=== PATIENT | female | born 1940 | race Caucasian/White ===

== ENCOUNTER 2020-08-09 14:56 | Inpatient (IN) | payer BC, OTHER ==
[~2020-08-09] VITALS: Ht 152.4 cm; Wt 54.0 kg
--- NOTE | 2020-08-09 15:10 | NUR ---
There is no information about current home medications available, the patient is unable to provide the information.
--- NOTE | 2020-08-09 15:15 | NUR ---
Dr. Charles at bedside MSE in progress.
[2020-08-09 15:57] LABS: BASOPHILS # (AUTO) 0.1 K/uL (0.0-8.0); BASOPHILS % (AUTO) 0.9 % (0.0-2.0); EOSINOPHILS # (AUTO) 0.3 K/uL (0.0-0.7); EOSINOPHILS % (AUTO) 2.3 % (0.0-7.0); HEMATOCRIT 31.6 % (31.2-41.9); HEMOGLOBIN 10.5 g/dL (10.9-14.3); LYMPHOCYTES # (AUTO) 1.7 K/uL (20.0-40.0); LYMPHOCYTES % (AUTO) 13.5 % (20.5-51.5); MEAN CORPUSCULAR HEMOGLOBIN 29.6 uug (24.7-32.8); MEAN CORPUSCULAR HGB CONC 33 g/dL (32.3-35.6); MEAN CORPUSCULAR VOLUME 89.5 fL (75.5-95.3); MONOCYTES % (AUTO) 8.4 % (0.0-11.0); NEUTROPHILS # (AUTO) 9.4 K/uL (1.8-8.9); NEUTROPHILS % (AUTO) 74.9 % (38.5-71.5); PLATELET COUNT (AUTO) 159 K/uL (179-408); RED BLOOD CELL COUNT(AUTO) 3.54 MIL/uL (3.63-4.92); WHITE BLOOD COUNT (AUTO) 12.5 K/uL (3.8-11.8)
[2020-08-09 16:01] LABS: CARBON DIOXIDE 22 mmol/L (21-32); CHLORIDE 107 mmol/L (98-107); CREATININE 1.4 mg/dL (0.6-1.3); GLUCOSE 110 mg/dL (74-106); POTASSIUM 4.3 mmol/L (3.5-5.1); UREA NITROGEN, BLOOD 51 mg/dL (7-18)
[2020-08-09 16:07] LABS: ETHANOL < 3 MG/DL (0-0)
[2020-08-09 16:14] LABS: THYROID STIMULATING HORMONE 0.513 mIU/mL (0.358-3.740)
[2020-08-09 16:16] LABS: ALANINE AMINOTRANSFERASE 19 U/L (14-59); ALKALINE PHOSPHATASE 74 U/L (50-136); ASPARTATE AMINOTRANSFERASE 19 U/L (15-37); BILIRUBIN,DIRECT 0.1 mg/dL (0.0-0.2); BILIRUBIN,TOTAL 0.2 mg/dL (0.2-1.0); CREATINE KINASE, TOTAL 69 U/L (26-192); TOTAL PROTEIN, SERUM 7.3 g/dL (6.4-8.2)
[2020-08-09 16:20] LABS: ACETAMINOPHEN < 2.0 ug/mL (10-30)
[2020-08-09 16:30] LABS: *BILIRUBIN,URIN NEGATIVE (NEGATIVE); *BLOOD, URINE NEGATIVE (NEGATIVE); *CLARITY,URINE CLEAR (CLEAR); *COLOR,URINE YELLOW (YELLOW); *KETONES,URINE NEGATIVE (NEGATIVE); *UROBILINOGEN,URINE 0.2 E.U./dl (NORMAL); LEUKOCYTE ESTERASE ,URINE NEGATIVE (NEGATIVE); NITRITE, URINE NEGATIVE (NEGATIVE); PH,URINE 5.5 (5.0-8.0); UGLUCOSE NEGATIVE (NEGATIVE)
--- NOTE | 2020-08-09 16:30 | NUR ---
Note escobar in EDM - 08/09/[address] Charles made aware that patient is being verbally and physically aggresive towards staff, threatening to leave despite her reason for being in the hospital in a calm manner. Dr. Charles with new order of Geodone 10mg IM.
--- NOTE | 2020-08-09 16:30 | NUR ---
Dr. Charles made aware that patient is being verbally and physically aggresive towards staff, threatening to leave despite explaining for her reason for being in the hospital in a calm manner. Dr. Charles with new order of Geodone 10mg IM. Quite and safe environment provided for patient bed in lowest position.
[2020-08-09] MEDS: OLANZAPINE 10 MG VIAL IM ONE ×2 (16:35→17:12)
[2020-08-09 16:39] LABS: BACTERIA,URINE NONE SEEN /HPF (NONE SEEN); RBC,URINE 0-3 /HPF (0-3); SQUAMOUS EPITHELIAL CELL,UR FEW /HPF (NONE SEEN); WBC,URINE 0-3 /HPF (0-3)
[2020-08-09] MEDS ORDERED: ZIPRASIDONE MESYLATE 20 MG VIAL IM ONE ×4 (16:39→17:30)
[2020-08-09 16:40] LABS: *AMPHETAMINE, URINE NEGATIVE (NEGATIVE); *CANNABINOID, URINE NEGATIVE (NEGATIVE); *COCCAINE, URINE NEGATIVE (NEGATIVE); *OPIATE, URINE NEGATIVE (NEGATIVE); *PHENCYCLIDINE SCREEN,URINE NEGATIVE (NEGATIVE)
--- NOTE | 2020-08-09 17:20 | NUR ---
Patient is now medically cleared by Dr Charles.
--- NOTE | 2020-08-09 17:21 | NUR ---
Patient was given Geodon IM, noted to be ineffective. Patient continues to be aggresive physically and verbally to staff. Noted to be danger to self and others. Multiple attempts to crawl out of bed. Dr. Charles with new order to give another Geodon 10mg IM.
--- NOTE | 2020-08-09 17:37 | NUR ---
Patient continued to be agitated, confused, and threatening staff. Patient attempting to climb out of bed and is a fall risk, danger to self and others. Staff attempted to reorient the patient unsuccessfully. MD notified, 10mg of geodon IM ordered and administered in right deltoid.
--- NOTE | 2020-08-09 17:40 | NUR ---
Patient now lying in bed calmly, bed is in lowest position. Will continue to monitor.
--- NOTE | 2020-08-09 17:58 | NUR ---
Reached out to person that dropped patient off without giving report - apparently it is patients insurance case manager - Tone Sanchez
--- NOTE | 2020-08-09 18:30 | NUR ---
Spoke with Becca, the pt.'s daughter on the phone to determine the pt.s psych history. She reported that the pt. developed dementia 4-5 months ago. She reports the pt. was perscribed seraquil for visual hallucinations; Her neurologist is Dr. Brian Ortiz; contact info [phone].
--- NOTE | 2020-08-09 19:28 | NUR ---
AISSATOU WYATT [phone] POSSIBLY DPOA.
--- NOTE | 2020-08-09 19:29 | NUR ---
REPORT RECEIVED FROM JO PITT
--- NOTE | 2020-08-09 19:30 | NUR ---
Pt resting at this time. no acute distress noted. resp even and unlabored.
--- NOTE | 2020-08-09 19:30 | NUR ---
Recieved additional information from Ashley at the independent living facility the pt. resides at. Reported the pt. has hx uti induced delirium and hypothyroidism; the pt. has a daughter named Becca who is the point of contact, whose contact information is [phone].
--- NOTE | 2020-08-09 19:36 | NUR ---
Gave report to JO Joiner for continuity of care.
--- NOTE | 2020-08-09 19:45 | NUR ---
provided patient with warm blanket. Pt resting at this time.
[2020-08-09] MEDS ORDERED: LABETALOL HCL 100 MG TABLET ONE (20:11)
[2020-08-09] MEDS ORDERED: LABETALOL HCL 100 MG TABLET PO ONE (20:15)
[2020-08-09] MEDS ORDERED: LOVA20TA2 PO (20:45)
[2020-08-09] MEDS ORDERED: LEVO100T PO (20:45)
[2020-08-09] MEDS ORDERED: QUET25TA PO (20:45)
--- NOTE | 2020-08-09 21:03 | NUR ---
Nasal Swab MRSA sent to lab earlier.
--- NOTE | 2020-08-09 21:35 | NUR ---
Admitted patient to MHU, oriented to the environment, explained rules and policy. Patient is under the care of Dr. Donaldson and Tip. No sign or symptom of respiratory distress, breathing even, unlabored. No indication of pain or discomfort. Skin assessment and lice check done with Acacia OSORIO. No significant finding. Skin intact. No lice found. Valuables and belongings check with NA and were place in proper storage. Patient was given patients right manual. Will continue to monitor patients behavior.
--- NOTE | 2020-08-09 22:30 | NUR ---
Upon admission, face to face assessment was done. Pt noted A/O 1. She was advised of her hold. Advisement was given as well as his booklet for patient with in metal facility. Dr Whelan was notify of patient's admission. he stated he will reconcile patient's medications in the morning. Will continue with Q15 min checks.
[2020-08-09] MEDS ORDERED: ASCO500C18 PO (22:42)
[2020-08-09] MEDS ORDERED: AMLO2.5T4 PO (22:42)
[2020-08-09] MEDS ORDERED: BRIM5DRO2 OP (22:43)
[2020-08-09] MEDS ORDERED: MAGNESIUM HYDROXIDE 30 ML LIQUID UDC PO PRN (23:00)
[2020-08-09] MEDS ORDERED: ACETAMINOPHEN 325 MG TABLET PO PRN (23:00)
[2020-08-09] MEDS ORDERED: MAG HYDROX/AL HYDROX/SIMETH 30 ML LIQUID UDC PO PRN (23:00)
[2020-08-10] MEDS: ZOLPIDEM 5 MG TABLET PO PRN (01:13)
--- NOTE | 2020-08-10 06:53 | NUR ---
Dr Donaldson was notify of patient's admission to MHU. will continue to monitor.
[2020-08-10] MEDS ORDERED: HOME MED MISCELLANEOUS XX SCH (07:00)
[2020-08-10] MEDS ORDERED: AMLODIPINE 2.5 MG TABLET PO PRN (07:00)
[2020-08-10 07:30] VITALS: BP 153/55
--- NOTE | 2020-08-10 08:28 | NUR ---
UR NOTE: [employer] [place] PPO Plan #[id number], Auth: [id number], Approval Days: 3 Days - 08/09-08/11. Appliance Parts Counter Clerk: Payton Avery, ([phone]), concurrent review due 08/11.
[2020-08-10] MEDS ORDERED: BRIMONIDINE-P 0.1% OPHTH DROP 5 ML DROPS EACHEYE SCH (09:00)
[2020-08-10] MEDS: ASCORBIC ACID 500 MG TABLET PO SCH (09:26)
[2020-08-10] MEDS: LEVOTHYROXINE SODIUM 100 MCG TABLET PO SCH (09:32)
--- NOTE | 2020-08-10 09:41 | NUR ---
Firearms Report: Environmental Services Technician completed and submitted a [employer] firearms report for 5150 grave disability certification. A copy of report has been placed in patient chart.
--- NOTE | 2020-08-10 10:24 | NUR ---
SW Initial Discharge: Patient currently resides at [facility] located at [address] [place] [id number]; ([phone]). This SW spoke with Business Office Technician from the [facility] ([phone]) who stated pt is welcomed back to her Independent Living once stable. He shared that DPOA is daughter Becca ([phone]) and will fax documents to this SW. This SW contacted patient's daughter Becca MARLOW ([phone]) to discuss discharge and treatment plan. Becca MARLOW would want to speak to this SW notified charge nurse. SW will help to coordinate proper discharge.
--- NOTE | 2020-08-10 10:24 | NUR ---
Family Contact: This SW contacted patient's daughter Becca MARLOW ([phone]) to discuss discharge and treatment plan. She would want pt to return back to her Assisted Living [facility] in [place]. Beccabi MARLOW would want to speak to this SW notified charge nurse.
--- NOTE | 2020-08-10 11:07 | NUR ---
Family Contact: This SW received a phone call from patient's daughter Becca MARLOW ([phone]) who appeared to be tearful and scared. This SW comforted her and educated her on patient's well-being. She appeared to be calm and understanding.
[2020-08-10 17:05] VITALS: BP 151/57
--- NOTE | 2020-08-10 18:54 | NUR ---
Gps/editor managing director- Dr Stokes (Neurology) will be in tomorrow , for Neurology consult .
[2020-08-10 20:00] VITALS: BP 151/65
[2020-08-10] MEDS: MEMANTINE HCL 5 MG TABLET PO SCH (20:00)
[2020-08-10] MEDS: ATORVASTATIN 10 MG TABLET PO SCH (20:00)
[2020-08-10] MEDS: LORAZEPAM 1 MG TABLET PO PRN (20:00)
[2020-08-10] MEDS: QUETIAPINE FUMARATE 25 MG TABLET PO SCH (20:00)
--- NOTE | 2020-08-11 05:50 | NUR ---
Received patient in muriel chair. Pt very hyperverbal and restless at this beginning of the shift. Was given Ativan to help relax her. Helped patient walk to bed to rest and slept a total of 8.30 hours. No discomfort noted. safety and comfort provided. Denies SI. No other issues or concerns at this time, will endorse to day shift.
[2020-08-11] MEDS: LEVOTHYROXINE SODIUM 100 MCG TABLET PO SCH (06:18)
[2020-08-11 07:30] VITALS: BP 148/49
--- NOTE | 2020-08-11 08:27 | NUR ---
UR NOTE: This SW received a call from [facility] for outpatient case manager TC ([phone]) (F:[phone]) who requested for this SW to fax patient's clinicals. [id number]. This SW faxed patient's H & P, progress notes, medication list, and laboratory list.
[2020-08-11] MEDS: SERTRALINE HCL 50 MG TABLET PO SCH (08:52)
[2020-08-11] MEDS: ASCORBIC ACID 500 MG TABLET PO SCH (08:52)
[2020-08-11] MEDS: MEMANTINE HCL 5 MG TABLET PO SCH ×2 (08:52→20:04)
--- NOTE | 2020-08-11 09:55 | NUR ---
Individual Therapy: gas plant worker met with patient for brief counseling to help address patient's presenting problem aggressive behavior. Patient does not exhibit aggressive behavior, however, pt does appear very confused and disorganized. Patient unable to have a proper conversation with this SW due to dementia. She kept stating "I know you, I know you". Patient barely alert and oriented to self. This SW unable to conduct therapy at this time.
--- NOTE | 2020-08-11 10:06 | NUR ---
UR NOTE: This SW contacted [facility] for community case manager TC ([phone]) (F:[phone]) and she stated that Tc community case manager is back and will review the clinicals. This SW contacted Tc at ([phone]) and left a voicemail stating that this SW faxed clinicals that are due today. This SW asked if Tc would contact this SW to authorize continued stay.
--- NOTE | 2020-08-11 11:04 | NUR ---
UR NOTE: Moy [employer] PPO Plan #[id number], Auth: [id number], Approval Days:. Electronic Console Display Operator: 08/11-08/14 with concurrent review on 08/14 with Christiano field nurse case manager ([phone]) (F: [phone]).
--- NOTE | 2020-08-11 12:30 | NUR ---
Gps/Rn Private Duty- Patient's Home Agency ([facility]) called wants to know her progress [phone]
--- NOTE | 2020-08-11 12:53 | NUR ---
SW Family Contact: This SW spoke with patient's DPOA Becca ([phone]) and discussed patient's update on her well-being. This SW also discussed discharge planning and stated once pt is stable she will return back to her assisted living. Becca was agreeable with this plan.
--- NOTE | 2020-08-11 14:47 | NUR ---
Gps/Manager Intensive Care- Patient is interactive, but speech is incoherent, extremely [place]. Stayed up in her terell-chair, attending her group therapy .Needy , needed prompting and encouragement to initiate simple tasks , toileted at a regular intervals..
[2020-08-11 16:06] VITALS: BP_SYST 132; BP_SYST 158; BP_DIAS 56; BP_DIAS 57
--- NOTE | 2020-08-11 16:59 | NUR ---
Gps/Cartridge Loading Operator- Patient has bilateral hearing aid on at this time, per [facility] (Home care Agency ) we do not do anything , it charged automatically when on payable processor and plugged.
[2020-08-11] MEDS: LORAZEPAM 1 MG TABLET PO PRN (17:37)
[2020-08-11] MEDS: QUETIAPINE FUMARATE 25 MG TABLET PO SCH (20:04)
[2020-08-11] MEDS: ATORVASTATIN 10 MG TABLET PO SCH (20:04)
[2020-08-11 20:05] VITALS: BP 142/54
--- NOTE | 2020-08-12 05:48 | NUR ---
Received patient in terell chair. No s/s of acute distress noted throughout the shift. Compliant with medications and plan of care. Patient falling asleep in the chair assisted back to bed. Slept for 7.00 hours. Safety measures in place and will endorse to oncoming shift.
[2020-08-12] MEDS: LEVOTHYROXINE SODIUM 100 MCG TABLET PO SCH (06:32)
[2020-08-12 07:44] LABS: BASOPHILS # (AUTO) 0.1 K/uL (0.0-8.0); BASOPHILS % (AUTO) 0.5 % (0.0-2.0); EOSINOPHILS # (AUTO) 0.3 K/uL (0.0-0.7); EOSINOPHILS % (AUTO) 2.7 % (0.0-7.0); HEMATOCRIT 34.9 % (31.2-41.9); HEMOGLOBIN 11.8 g/dL (10.9-14.3); LYMPHOCYTES # (AUTO) 1.7 K/uL (20.0-40.0); LYMPHOCYTES % (AUTO) 13.2 % (20.5-51.5); MEAN CORPUSCULAR HEMOGLOBIN 29.9 uug (24.7-32.8); MEAN CORPUSCULAR HGB CONC 34 g/dL (32.3-35.6); MEAN CORPUSCULAR VOLUME 88.8 fL (75.5-95.3); MONOCYTES # (AUTO) 0.7 K/uL (2.0-10.0); MONOCYTES % (AUTO) 5.8 % (0.0-11.0); NEUTROPHILS # (AUTO) 9.8 K/uL (1.8-8.9); NEUTROPHILS % (AUTO) 77.8 % (38.5-71.5); PLATELET COUNT (AUTO) 181 K/uL (179-408); RED BLOOD CELL COUNT(AUTO) 3.94 MIL/uL (3.63-4.92); WHITE BLOOD COUNT (AUTO) 12.6 K/uL (3.8-11.8)
[2020-08-12 07:57] LABS: IRON, SERUM 62 ug/dL (50-175)
[2020-08-12 08:23] LABS: ALANINE AMINOTRANSFERASE 13 U/L (14-59); ALKALINE PHOSPHATASE 77 U/L (50-136); ASPARTATE AMINOTRANSFERASE 17 U/L (15-37); BILIRUBIN,TOTAL 0.3 mg/dL (0.2-1.0); CARBON DIOXIDE 25 mmol/L (21-32); CHLORIDE 107 mmol/L (98-107); CREATININE 1.6 mg/dL (0.6-1.3); FERRITIN 743 ng/mL (8-252); GLUCOSE 102 mg/dL (74-106); MAGNESIUM 2.1 mg/dL (1.8-2.4); PHOSPHOROUS 4.3 mg/dL (2.5-4.9); POTASSIUM 4.5 mmol/L (3.5-5.1); TOTAL PROTEIN, SERUM 7.6 g/dL (6.4-8.2); UREA NITROGEN, BLOOD 48 mg/dL (7-18)
[2020-08-12 08:26] VITALS: BP 149/62
[2020-08-12 08:49] LABS: CREATINE KINASE, TOTAL 72 U/L (26-192)
[2020-08-12] MEDS: MEMANTINE HCL 5 MG TABLET PO SCH ×2 (09:01→20:13)
[2020-08-12] MEDS: ASCORBIC ACID 500 MG TABLET PO SCH (09:01)
[2020-08-12] MEDS: SERTRALINE HCL 50 MG TABLET PO SCH (09:01)
--- NOTE | 2020-08-12 16:00 | NUR ---
Gps/Mud Cleaner Operator- Patient had been in and out of bed to her terell-chair, tried to keep patient by the Nurses station for safety. Brother in-law came in to visit pt. this pm, appeared she was able to identify him. Speech confused and incoherent, extremely [place], has bilateral hearing aid on. Poor safety judgement, tried to get OOB when put into bed. bed alarm on.
[2020-08-12 16:13] VITALS: BP 130/60
[2020-08-12] MEDS: ATORVASTATIN 10 MG TABLET PO SCH (20:13)
[2020-08-12] MEDS: QUETIAPINE FUMARATE 25 MG TABLET PO SCH (20:14)
--- NOTE | 2020-08-13 05:24 | NUR ---
Pt asleep at this time, respirations even and unlabored. Denies pain. Kept comfortable. Safety precautions in place. Frequent rounds done to ensure safety. Compliant with HS meds.
[2020-08-13] MEDS: LEVOTHYROXINE SODIUM 100 MCG TABLET PO SCH (06:32)
[2020-08-13 07:30] VITALS: BP 128/50
[2020-08-13] MEDS: MEMANTINE HCL 5 MG TABLET PO SCH ×2 (08:09→21:14)
[2020-08-13] MEDS: SERTRALINE HCL 50 MG TABLET PO SCH (08:10)
[2020-08-13] MEDS: ASCORBIC ACID 500 MG TABLET PO SCH (08:10)
[2020-08-13] MEDS: LORAZEPAM 1 MG TABLET PO PRN ×2 (09:49→22:18)
[2020-08-13] MEDS: AMLODIPINE 2.5 MG TABLET PO SCH (14:00)
[2020-08-13 16:00] VITALS: BP 145/57
[2020-08-13 20:00] VITALS: BP 127/46
[2020-08-13] MEDS: ATORVASTATIN 10 MG TABLET PO SCH (21:14)
[2020-08-13] MEDS: QUETIAPINE FUMARATE 25 MG TABLET PO SCH (21:14)
--- NOTE | 2020-08-13 22:00 | NUR ---
Received pt in the activity room and watching tv. AAO x1-2. No acute distress noted. Denies SI. Pt has hearing aid in place. Due meds given as ordered. Safety measures maintained. Will continue to monitor.
[2020-08-14] MEDS: LEVOTHYROXINE SODIUM 100 MCG TABLET PO SCH (06:21)
[2020-08-14 07:30] VITALS: BP 155/55
[2020-08-14] MEDS: SERTRALINE HCL 50 MG TABLET PO SCH ×2 (09:00→11:25)
[2020-08-14] MEDS: ASCORBIC ACID 500 MG TABLET PO SCH ×2 (09:00→11:26)
[2020-08-14] MEDS: AMLODIPINE 2.5 MG TABLET PO SCH ×2 (09:00→11:27)
[2020-08-14] MEDS: MEMANTINE HCL 5 MG TABLET PO SCH ×3 (09:00→20:55)
--- NOTE | 2020-08-14 10:17 | NUR ---
UR NOTE: Moy [employer] PPO Plan #[id number], Auth: [id number], Approval Days:. Structural Iron Erector: 08/11-08/14 with concurrent review on 08/14 with Christiano case filler ([phone]) (F: [phone]). This SW faxed patient's clinicals.
--- NOTE | 2020-08-14 11:53 | NUR ---
SW Family Contact: This SW Facetimed patient's daughter ([phone]) and daughter spoke with patient through Facetime while this SW was present.
--- NOTE | 2020-08-14 11:56 | NUR ---
UR NOTE: Moy [employer] PPO Plan #[id number], Auth: [id number], Approval Days:. Hand Developer: 08/11-08/14 with concurrent review on 08/14 with Christiano case management director ([phone]) (F: [phone]). This SW faxed patient's clinicals and attempted to leave case management director Christiano a voicemail, however, his voicemail was full.
--- NOTE | 2020-08-14 13:16 | NUR ---
SW Assisted Living Contact: This narrative writer received a call from Marcelo ([phone]) and left a voicemail for this SW to contact. This SW contacted back and was unavailable. This SW left a voicemail.
--- NOTE | 2020-08-14 14:43 | NUR ---
UR NOTE: This SW received a phone call from [place] piano case maker ([phone]) who stated that patient's new piano case maker is Elina Marrufo ([phone]). [id number], Auth: [id number]. This SW faxed it to Elina (F: [phone]) and left a voicemail to contact this SW for continued auth days.
--- NOTE | 2020-08-14 14:56 | NUR ---
Individual Therapy: family service worker met with patient for brief counseling to help address patient's presenting problem aggressive behavior. Patient does not exhibit aggressive behavior, however, pt does appear very confused and disorganized. Patient unable to have a proper conversation due to dementia. Patient is alert and oriented to self only. Patient did appear paranoid and delusional yelling "uncle, uncle". SW unable to conduct proper therapy at this time.
[2020-08-14 15:26] VITALS: BP 118/54
[2020-08-14 20:30] VITALS: BP 132/53
[2020-08-14] MEDS: QUETIAPINE FUMARATE 25 MG TABLET PO SCH (20:55)
[2020-08-14] MEDS: ATORVASTATIN 10 MG TABLET PO SCH (20:55)
[2020-08-15] MEDS: LEVOTHYROXINE SODIUM 100 MCG TABLET PO SCH (06:25)
[2020-08-15 07:30] VITALS: BP 148/59
[2020-08-15] MEDS: SERTRALINE HCL 50 MG TABLET PO SCH (09:02)
[2020-08-15] MEDS: QUETIAPINE FUMARATE 25 MG TABLET PO SCH ×3 (09:02→20:35)
[2020-08-15] MEDS: ASCORBIC ACID 500 MG TABLET PO SCH (09:03)
[2020-08-15] MEDS: MEMANTINE HCL 5 MG TABLET PO SCH ×2 (09:03→20:35)
[2020-08-15] MEDS: AMLODIPINE 2.5 MG TABLET PO SCH (09:04)
--- NOTE | 2020-08-15 10:42 | NUR ---
Court Hearing: Patient's court hearing was today and it was upheld for GD.
--- NOTE | 2020-08-15 10:45 | NUR ---
UR NOTE: This SW received a phone call from Elina Marrufo ([phone]). Moy [facility] PPO Plan #[id number], Auth: [id number] and stated pt is authorized until 08/16 with concurrent review due 08/16.
--- NOTE | 2020-08-15 13:48 | NUR ---
SW Family Contact: This SW spoke with patient's daughter KASHMIR Hudson ([phone]) and discussed patient's discharge plan. She stated she would want patient to return back to her Independent Living and she has 24 hour caregiver at home.
[2020-08-15 14:29] LABS: ALBUMIN 3.3; ALPHA-1-GLOBULIN 0.2; ALPHA-2-GLOBULIN 0.9; GAMMA GLOBULIN 1.3; GLOBULIN, TOTAL 3.4; M-SPIKE NOT OBSERVED
[2020-08-15 15:04] VITALS: BP 157/56
--- NOTE | 2020-08-15 15:10 | NUR ---
SW Family Contact: This SW Facetimed with patient's daughter Becca on Facetime at 1500.
[2020-08-15] MEDS: HYDROXYZINE PAMOATE 25 MG CAPSULE PO PRN (16:16)
[2020-08-15 20:14] VITALS: BP 115/73
[2020-08-15] MEDS: ATORVASTATIN 10 MG TABLET PO SCH (20:35)
[2020-08-16] MEDS: LEVOTHYROXINE SODIUM 100 MCG TABLET PO SCH (06:22)
[2020-08-16 07:30] VITALS: BP 130/55
[2020-08-16 07:31] LABS: BASOPHILS # (AUTO) 0.1 K/uL (0.0-8.0); BASOPHILS % (AUTO) 0.7 % (0.0-2.0); EOSINOPHILS # (AUTO) 0.2 K/uL (0.0-0.7); EOSINOPHILS % (AUTO) 2.4 % (0.0-7.0); HEMATOCRIT 33.5 % (31.2-41.9); HEMOGLOBIN 11.4 g/dL (10.9-14.3); LYMPHOCYTES # (AUTO) 1.2 K/uL (20.0-40.0); LYMPHOCYTES % (AUTO) 12.4 % (20.5-51.5); MEAN CORPUSCULAR HEMOGLOBIN 29.8 uug (24.7-32.8); MEAN CORPUSCULAR HGB CONC 34 g/dL (32.3-35.6); MEAN CORPUSCULAR VOLUME 87.9 fL (75.5-95.3); MONOCYTES # (AUTO) 0.9 K/uL (2.0-10.0); MONOCYTES % (AUTO) 9.4 % (0.0-11.0); NEUTROPHILS # (AUTO) 7.5 K/uL (1.8-8.9); NEUTROPHILS % (AUTO) 75.1 % (38.5-71.5); PLATELET COUNT (AUTO) 174 K/uL (179-408); RED BLOOD CELL COUNT(AUTO) 3.81 MIL/uL (3.63-4.92)
[2020-08-16 07:48] LABS: ALANINE AMINOTRANSFERASE 19 U/L (14-59); ALKALINE PHOSPHATASE 74 U/L (50-136); ASPARTATE AMINOTRANSFERASE 14 U/L (15-37); BILIRUBIN,TOTAL 0.3 mg/dL (0.2-1.0); CARBON DIOXIDE 28 mmol/L (21-32); CHLORIDE 106 mmol/L (98-107); CREATININE 1.7 mg/dL (0.6-1.3); GLUCOSE 120 mg/dL (74-106); MAGNESIUM 2.3 mg/dL (1.8-2.4); PHOSPHOROUS 4.6 mg/dL (2.5-4.9); POTASSIUM 4.3 mmol/L (3.5-5.1); TOTAL PROTEIN, SERUM 7.3 g/dL (6.4-8.2); UREA NITROGEN, BLOOD 57 mg/dL (7-18)
[2020-08-16] MEDS: AMLODIPINE 2.5 MG TABLET PO SCH (08:10)
[2020-08-16] MEDS: SERTRALINE HCL 50 MG TABLET PO SCH (08:10)
[2020-08-16] MEDS: QUETIAPINE FUMARATE 25 MG TABLET PO SCH ×3 (08:11→20:01)
[2020-08-16] MEDS: ASCORBIC ACID 500 MG TABLET PO SCH (08:11)
[2020-08-16] MEDS: MEMANTINE HCL 5 MG TABLET PO SCH ×2 (08:12→20:01)
--- NOTE | 2020-08-16 09:08 | NUR ---
UR NOTE: M[employer] PPO Plan #[id number], Auth: [id number], Approval Days:. Newspaper Reporter: Christiano shoe caser ([phone]) (F: [phone]). This SW called Christiano shoe caser and provided clinicals and approved until 08/18 with concurrent review due on 08/18.
[2020-08-16 16:00] VITALS: BP 132/82
--- NOTE | 2020-08-16 16:12 | NUR ---
SW Family Contact: This SW Facetimed with patient's daughter Becca on Facetime at 1600.
--- NOTE | 2020-08-16 16:12 | NUR ---
SW Assisted Living Contact: This SW contacted [facility] caregiver ([phone]) who stated he will picker tender helper pt on 08/19 at 2PM.
--- NOTE | 2020-08-16 16:47 | NUR ---
ORDER FOR MRI was noted. Called Jason from [facility] ([phone]). Per him, he will call for approval tomorrow (08/17/2020) and will call the unit around 7am with appointment time. Typesetter Apprentice, Fernando was notified.
[2020-08-16] MEDS: ATORVASTATIN 10 MG TABLET PO SCH (20:01)
[2020-08-16 20:04] VITALS: BP 125/48
[2020-08-17] MEDS: LEVOTHYROXINE SODIUM 100 MCG TABLET PO SCH (06:23)
[2020-08-17 07:30] VITALS: BP 137/60
[2020-08-17 08:05] LABS: BASOPHILS # (AUTO) 0.1 K/uL (0.0-8.0); BASOPHILS % (AUTO) 0.7 % (0.0-2.0); EOSINOPHILS # (AUTO) 0.3 K/uL (0.0-0.7); EOSINOPHILS % (AUTO) 2.9 % (0.0-7.0); HEMATOCRIT 34.1 % (31.2-41.9); HEMOGLOBIN 11.3 g/dL (10.9-14.3); LYMPHOCYTES # (AUTO) 1.5 K/uL (20.0-40.0); LYMPHOCYTES % (AUTO) 14.8 % (20.5-51.5); MEAN CORPUSCULAR HEMOGLOBIN 29.5 uug (24.7-32.8); MEAN CORPUSCULAR HGB CONC 33 g/dL (32.3-35.6); MEAN CORPUSCULAR VOLUME 89.1 fL (75.5-95.3); MONOCYTES % (AUTO) 9.3 % (0.0-11.0); NEUTROPHILS # (AUTO) 7.5 K/uL (1.8-8.9); NEUTROPHILS % (AUTO) 72.3 % (38.5-71.5); PLATELET COUNT (AUTO) 177 K/uL (179-408); RED BLOOD CELL COUNT(AUTO) 3.83 MIL/uL (3.63-4.92); WHITE BLOOD COUNT (AUTO) 10.4 K/uL (3.8-11.8)
[2020-08-17 08:11] LABS: ALANINE AMINOTRANSFERASE 17 U/L (14-59); ALKALINE PHOSPHATASE 77 U/L (50-136); ASPARTATE AMINOTRANSFERASE 16 U/L (15-37); BILIRUBIN,TOTAL 0.2 mg/dL (0.2-1.0); CARBON DIOXIDE 26 mmol/L (21-32); CHLORIDE 105 mmol/L (98-107); CREATININE 1.8 mg/dL (0.6-1.3); GLUCOSE 109 mg/dL (74-106); MAGNESIUM 2.3 mg/dL (1.8-2.4); PHOSPHOROUS 4.3 mg/dL (2.5-4.9); POTASSIUM 4.1 mmol/L (3.5-5.1); TOTAL PROTEIN, SERUM 7.5 g/dL (6.4-8.2); UREA NITROGEN, BLOOD 71 mg/dL (7-18)
[2020-08-17] MEDS: ASCORBIC ACID 500 MG TABLET PO SCH (08:34)
[2020-08-17] MEDS: QUETIAPINE FUMARATE 25 MG TABLET PO SCH ×3 (08:34→20:02)
[2020-08-17] MEDS: MEMANTINE HCL 5 MG TABLET PO SCH ×2 (08:34→20:02)
[2020-08-17] MEDS: SERTRALINE HCL 50 MG TABLET PO SCH (08:35)
--- NOTE | 2020-08-17 08:36 | NUR ---
called and spoke with with orders to schedule MRI felisa at 10am , Nursing Equalizer Operator Lili brannon, to schedule a sitter to go with the MRI, spoke with JOHN , aware of the schedule for MRI felisa, patient and family aware
[2020-08-17] MEDS: AMLODIPINE 2.5 MG TABLET PO SCH (08:37)
--- NOTE | 2020-08-17 11:04 | NUR ---
UR NOTE: Moy [employer] [place] PPO Plan #[id number], Auth: [id number], Approval Days:. Wet Crown Blocking Operator: Christiano showcase trimmer ([phone]) (F: [phone]). This SW contacted Christiano to request if he can authorize for transportation. This SW left a voicemail.
[2020-08-17] MEDS: HYDROXYZINE PAMOATE 25 MG CAPSULE PO PRN (11:57)
--- NOTE | 2020-08-17 13:47 | NUR ---
pt refused kid us
--- NOTE | 2020-08-17 16:35 | NUR ---
Patient left to [facility] for MRI procedure. Patient not in acute distress. Patient left via ambulance gurney accompanied by sydnee for safety.
--- NOTE | 2020-08-17 16:41 | NUR ---
patient was picked up by ambulance for MRI appointment, accompanied by sydnee
[2020-08-17 17:02] VITALS: BP 130/51
--- NOTE | 2020-08-17 18:38 | NUR ---
Received patient in [facility], being monitored for safety. Patient not in acute distress. Patient agitated and restless. Patient given Vistaril PRN. Due medications given and tolerated well. Patient [place], with bilateral hearing aids on. Will endorse to incoming shift for continuity of care.
[2020-08-17] MEDS: ATORVASTATIN 10 MG TABLET PO SCH (20:02)
[2020-08-17 20:04] VITALS: BP 139/54
[2020-08-18] MEDS: LEVOTHYROXINE SODIUM 100 MCG TABLET PO SCH (06:21)
[2020-08-18 07:30] VITALS: BP 142/67
--- NOTE | 2020-08-18 07:30 | NUR ---
received patient asleep on bed, patient woke up assisted with ADL, patient took her medication , denies SIand HI, patient confused, labile, would shout and bang the table, prn meds given per MDs order, patient on monitoring for [id number] for safety,
[2020-08-18] MEDS: ASCORBIC ACID 500 MG TABLET PO SCH (08:40)
[2020-08-18] MEDS: QUETIAPINE FUMARATE 25 MG TABLET PO SCH ×3 (08:40→20:29)
[2020-08-18] MEDS: SERTRALINE HCL 50 MG TABLET PO SCH (08:40)
[2020-08-18] MEDS: AMLODIPINE 2.5 MG TABLET PO SCH (08:42)
[2020-08-18] MEDS: MEMANTINE HCL 5 MG TABLET PO SCH ×2 (08:48→20:29)
--- NOTE | 2020-08-18 10:33 | NUR ---
UR NOTE: Supervisor Machining: Christiano counter caser ([phone]) (F: [phone]) this SW left a voicemail to help pt's family to find a neurologist and psychiatrist through her insurance.
--- NOTE | 2020-08-18 11:21 | NUR ---
FRIDAY DISCHARGE ENTRY: Patient will return back to [facility] in [place] [address], [place] [address]; ([phone]). Patients caregiver Sherman ([phone]) will filler picker patient at 2PM. Patients daughter KASHMIR Hudson ([phone]) is aware and agreeable with discharge. Patient denies visual/auditory hallucinations. Patient denies suicidal or homicidal ideation. Patient appeared to be alert and oriented x1 and is willing to go back to her Independent Living. Patient will follow up with primary doctor Dr. Carson and will provide psychotropic medications at the [facility]. This provided [facility] psychiatrist resources: Dr. Dacosta ([phone]), Dr. Wills ([phone]), Dr. Levy ([phone]) Patient presented with euthymic mood and congruent affect.
--- NOTE | 2020-08-18 11:24 | NUR ---
UR NOTE: M[employer] PPO Plan #[id number], Auth: [id number], Approval Days:. Navy Diver: Christiano case therapist ([phone]) (F: [phone]). This SW faxed patient's clinicals and left a voicemail. This SW faxed patient's discharge notes.
[2020-08-18] MEDS: HYDROXYZINE PAMOATE 25 MG CAPSULE PO PRN (14:04)
--- NOTE | 2020-08-18 14:35 | NUR ---
Individual Therapy: poultry offal worker met with patient for brief counseling to help address patient's presenting problem aggressive behavior. Patient does not exhibit aggressive behavior, however, pt does appear confused. Patient was blankly staring at this conventional underwriter and was unable to have a conversation. SW unable to conduct therapy at this time.
--- NOTE | 2020-08-18 16:18 | NUR ---
SW Family Contact: This SW spoke with daughter Becca and she stated that she will be making the appointments for the patient.
--- NOTE | 2020-08-18 16:19 | NUR ---
SW Assisted Living Contact: This SW contacted [facility] caregiver ([phone]) who stated that the daughter will be making the appointments for the pt.
[2020-08-18 16:52] VITALS: BP 145/52
--- NOTE | 2020-08-18 18:02 | NUR ---
patient verbally abusive, shouting and banging table, patient redirectable, assisted with ADL , no sign of distress
[2020-08-18 20:00] VITALS: BP 144/83
[2020-08-18] MEDS: ATORVASTATIN 10 MG TABLET PO SCH (20:29)
[2020-08-18 20:30] VITALS: BP 144/83
[2020-08-18] MEDS: ZOLPIDEM 5 MG TABLET PO PRN (22:02)
--- NOTE | 2020-08-19 05:47 | NUR ---
GPS: Remain calm and cooperative with care. assisted with adl's. slept 7 hrs after ambien 5 mg po given for sleep. resting in bed comfortably. continue plan of care.
[2020-08-19] MEDS: LEVOTHYROXINE SODIUM 100 MCG TABLET PO SCH (06:00)
[2020-08-19 07:30] VITALS: BP 108/63
[2020-08-19] MEDS: ASCORBIC ACID 500 MG TABLET PO SCH (08:56)
[2020-08-19] MEDS: MEMANTINE HCL 5 MG TABLET PO SCH (08:56)
[2020-08-19] MEDS: SERTRALINE HCL 50 MG TABLET PO SCH (08:56)
[2020-08-19] MEDS: QUETIAPINE FUMARATE 25 MG TABLET PO SCH (08:56)
[2020-08-19 08:57] VITALS: BP 108/63
[2020-08-19] MEDS: AMLODIPINE 2.5 MG TABLET PO SCH (08:57)
--- NOTE | 2020-08-19 14:34 | NUR ---
patient was discharged to assisted living of [facility] , was picked up by her caregiver Yury , patient denies SI and HI, been compliant with medication, provided, prescription of her medication and copy of CT scan and MRI per request, MD and family is aware of the DC,
--- NOTE | 2020-08-21 16:26 | NUR ---
SW Doctor Contact: This SW contacted patient's doctor Dr. Carson and faxed patient's clinicals. This SW made an appointment for August 23 at 4 o'clock. This SW contacted the doctor to make the appointment per patient's daughters request.
--- NOTE | 2020-08-22 14:29 | NUR ---
UR NOTE: [place] [employer] [employer] PPO Plan #[id number], Auth: [id number], Approval Days:. Director Of The Biophysics Facility: Christiano case management director ([phone]) (F: [phone]). This SW faxed it to Christiano discharge summary.
== END 2020-08-19 14:40 | DRG 885 ==
LOC: ER 14:56 → GPS 21:19
PROVIDERS: ADMIT Psychiatry & Neurology Psychiatry; ATTEND Nurse Practitioner Acute Care
DX: F29 Unspecified psychosis not due to a substance or known physiological condition (principal); N17.0 Acute kidney failure with tubular necrosis; N18.9 Chronic kidney disease, unspecified; F03.91 Unspecified dementia, unspecified severity, with behavioral disturbance; E44.1 Mild protein-calorie malnutrition; G93.40 Encephalopathy, unspecified; G91.9 Hydrocephalus, unspecified; E86.0 Dehydration; D64.9 Anemia, unspecified; D72.829 Elevated white blood cell count, unspecified; E03.9 Hypothyroidism, unspecified; E78.5 Hyperlipidemia, unspecified; I12.9 Hypertensive chronic kidney disease with stage 1 through stage 4 chronic kidney disease, or unspecified chronic kidney disease; Z91.81 History of falling; Z73.6 Limitation of activities due to disability; Z68.23 Body mass index [BMI] 23.0-23.9, adult; F32.9 Major depressive disorder, single episode, unspecified; Z20.822 Contact with and (suspected) exposure to COVID-19
CPT/HCPCS: 36415; 70450; 70551; 83550; 83735; 83970; 84100; 84155; 84165; 84443; 85025; 93005; G0480; J3486